=== PATIENT | female | born 1955 | race Hispanic/Latino ===

== ENCOUNTER 2016-07-15 01:37 | Emergency (ER) | payer OTHER ==
[2016-07-15 01:39] VITALS: BMI 34.0
[2016-07-15 02:07] VITALS: TEMP 97.9
--- NOTE | 2016-07-15 02:16 | ED PDOC ---
Arrival/HPI - General Chief Complaint: Dizziness/Lightheaded Time Seen by Provider: 07/15/16 01:42 Historian: Patient - History of Present Illness Narrative History of Present Illness (Text): 07/15/16 02:12 Gianna Parikh is a 61 year old female who presents to the emergency department complaining of dizziness and nausea. States that she woke up from sleep in the middle of the night with room-spinning sensation. Patient measured her blood pressure at home which was elevated at 200s/100s. Took Metoprolol which her mother had and Meclizine at home prior to arrival. Denies any fever, chills, headache, chest pain, shortness of breath, abdominal pain, vomiting, diarrhea, urinary symptoms, or any other complaints at this time. Time/Duration: 1-3 hours Symptom Onset: Sudden Symptom Course: Improving Severity Level: Mild Context: Home Past Medical History - Provider Review Nursing Documentation Reviewed: Yes - Infectious Disease Hx of Infectious Diseases: None - Tetanus Immunization Tetanus Immunization: Unknown - Cardiac Hx Cardiac Disorders: No - Pulmonary Hx Chronic Obstructive Pulmonary Disease (COPD): Yes - Neurological Hx Neurological Disorder: No - HEENT Hx HEENT Disorder: No - Renal Hx Renal Disorder: No - Endocrine/Metabolic Hx Endocrine Disorders: No - Hematological/Oncological Hx Blood Disorders: No - Integumentary Hx Dermatological Disorder: No - Musculoskeletal/Rheumatological Hx Falls: No - Gastrointestinal Hx Gastrointestinal Disorders: No - Genitourinary/Gynecological Hx Genitourinary Disorders: No - Psychiatric Hx Anxiety: Yes Hx Panic Disorder: Yes Hx Substance Use: No - Surgical History Hx Cholecystectomy: Yes Other/Comment: gallbladder. - Anesthesia Hx Anesthesia: No Hx Anesthesia Reactions: No Hx Malignant Hyperthermia: No - Suicidal Assessment Feels Threatened In Home Enviroment: No Family/Social History - Physician Review Nursing Documentation Reviewed: Yes Family/Social History: No Known Family HX Smoking Status: Former Smoker Hx Alcohol Use: No Hx Substance Use: No Hx Substance Use Treatment: No Allergies/Home Meds Allergies/Adverse Reactions: Allergies No Known Allergies Allergy (Verified 05/29/12 18:35) Home Medications: Home Meds Medication Instructions Recorded Confirmed Alprazolam [Xanax] 0.25 mg PO PRN PRN 05/29/12 03/13/13 Escitalopram Oxalate [Lexapro] 10 mg PO DAILY 05/29/12 03/13/13 Albuterol Sulfate [Proair Hfa] 0.09 mg IH DAILY PRN 03/13/13 03/13/13 Fluticasone/Salmeterol 250/50 1 dsk IH DAILY PRN 03/13/13 03/13/13 [Advair Diskus] Zolpidem Tartrate [Ambien] 5 mg PO HS 03/13/13 03/13/13 Aspirin [Aspirin] 81 mg PO DAILY 03/14/13 03/14/13 Metoprolol Tartrate [Lopressor] 25 mg PO DAILY 03/14/13 03/14/13 Review of Systems - Physician Review All systems were reviewed & negative as marked: Yes - Review of Systems Constitutional: Normal. absent: Fatigue, Fevers Respiratory: Normal. absent: SOB, Cough, Sputum Cardiovascular: Normal. absent: Chest Pain, Palpitations Gastrointestinal: Nausea. absent: Abdominal Pain, Diarrhea, Vomiting Genitourinary Female: Normal Neurological: Dizziness. absent: Focal Weakness Psychiatric: Normal Physical Exam Vital Signs Reviewed: Yes Vital Signs Temp Pulse Resp BP Pulse Ox 07/15/16 04:32 62 20 145/96 H 92 L 07/15/16 02:07 97.9 F 64 20 161/96 H 94 L 07/15/16 01:44 98.1 F 81 19 184/106 H 97 Temperature: Afebrile Blood Pressure: Hypertensive Pulse: Regular Respiratory Rate: Normal Appearance: Positive for: Well-Appearing, Non-Toxic, Comfortable Pain Distress: None Mental Status: Positive for: Alert and Oriented X 3 - Systems Exam Head: Present: Atraumatic, Normocephalic Pupils: Present: PERRL Conjunctiva: Present: Normal Respiratory/Chest: Present: Clear to Auscultation, Good Air Exchange. No: Respiratory Distress, Accessory Muscle Use Cardiovascular: Present: Regular Rate and Rhythm, Normal S1, S2. No: Murmurs Abdomen: Present: Normal Bowel Sounds. No: Tenderness, Distention, Peritoneal Signs Upper Extremity: Present: Normal Inspection. No: Cyanosis, Edema Lower Extremity: Present: Normal Inspection. No: Edema Neurological: Present: GCS=15, CN II-XII Intact, Speech Normal, Motor Func Grossly Intact, Normal Sensory Function Skin: Present: Warm, Dry, Normal Color. No: Rashes Psychiatric: Present: Alert, Oriented x 3, Normal Insight, Normal Concentration Medical Decision Making ED Course and Treatment: 07/15/16 02:17 Impression: A 61 year old female who presents to the emergency department complaining of dizziness and nausea since waking up in the middle of the night. Plan: -- CT Head -- EKG -- Labs, troponin -- Urinalysis -- Reassess and disposition Progress Notes: 07/15/16 03:40 EKG reviewed by me: NSR @ 62 bpm with premature atrial complexes. 07/15/16 04:00 FINDINGS: Brain: No intracranial hemorrhage. Periventricular hypoattenuation favored to be related to chronic small vessel ischemic changes. There may be some cerebellar tonsillar ectopia, noting that there is no evidence to suggest hydrocephalus. Changes in the region of the left basal ganglia series 2 image 26 favored stable compared to series 2 image 25 of the study of November 2015. Ventricles: Unremarkable. No ventriculomegaly. Bones/joints: Unremarkable. No acute fracture. Soft tissues: Unremarkable. Vasculature: Sinuses: Patchy ethmoid sinus disease. Mild mucoperiosteal disease in the bilateral maxillary sinus. Mastoid air cells: Unremarkable as visualized. No mastoid effusion. IMPRESSION: No intracranial hemorrhage. No abnormality suspicious for acute stroke by noncontrast head CT. If there is clinical suspicion for stroke, please note that other modalities are considered to be more sensitive than noncontrast head CT. Please refer to the final report, as additional comparisons or other additional information may be available at that time. Re-evaluation Time: 06:07 Reassessment Condition: Re-examined, Improved - Lab Interpretations Lab Results: 07/15/16 02:10 07/15/16 02:10 Lab Results 07/15/16 02:20: Urine Color Yellow, Urine Appearance Sl cloudy, Urine pH 6.0, Ur Specific [place] 1.010, Urine Protein Negative, Urine Glucose (UA) Negative, Urine Ketones Negative, Urine Blood Negative, Urine Nitrate Negative, Urine Bilirubin Negative, Urine Urobilinogen 0.2, Ur Leukocyte Esterase Moderate H, Urine RBC 0 - 2, Urine WBC 5 - 10, Ur Epithelial Cells 3 - 4, Urine Bacteria Few 07/15/16 02:10: WBC 7.1, RBC 4.36, Hgb 13.0, Hct 38.3, MCV 87.8, MCH 29.8, MCHC 33.9, RDW 13.2, Plt Count 188, MPV 9.8, Gran % 45.5 L, Lymph % (Auto) 37.7 H, [place] % (Auto) 8.0 H, Eos % (Auto) 8.4 H, Baso % (Auto) 0.4, Gran # 3.24, Lymph # 2.7, [place] # 0.6, Eos # 0.6, Baso # 0.03 07/15/16 02:10: Sodium 140, Potassium 3.9, Chloride 105, Carbon Dioxide 27, Anion Gap 12, BUN 14, Creatinine 0.6, Est GFR ( Amer) > 60, Est GFR (Non- Af Amer) > 60, Random Glucose 102, Calcium 9.2, Total Bilirubin 0.3, AST 23, ALT 29, Alkaline Phosphatase 90, Troponin I < 0.01, Total Protein 7.7, Albumin 4.2, Globulin 3.6, Albumin/Globulin Ratio 1.2 I have reviewed the lab results: Yes - RAD Interpretation Radiology Orders: 07/15/16 01:59 HEAD W/O CONTRAST [CT] Stat Master Lay Out Specialist: Radiologist - EKG Interpretation Interpreted by ED Physician: Yes Type: 12 lead EKG - Medication Orders Current Medication Orders: Sodium Chloride (Sodium Chloride 0.9%) 1,000 mls @ 80 mls/hr IV .[id number] Last Admin: 07/15/16 04:26 Dose: 80 mls/hr Discontinued Medications Meclizine HCl (Antivert) 12.5 mg PO STAT STA Stop: 07/15/16 02:54 Last Admin: 07/15/16 02:59 Dose: 12.5 mg Metoclopramide HCl (Reglan) 10 mg IVP ONCE ONE Stop: 07/15/16 04:17 Last Admin: 07/15/16 04:27 Dose: 10 mg Ondansetron HCl (Zofran Inj) 4 mg IVP STAT STA Stop: 07/15/16 02:54 Last Admin: 07/15/16 02:59 Dose: 4 mg Ondansetron HCl (Zofran Inj) 4 mg IVP STAT STA Stop: 07/15/16 03:44 Last Admin: 07/15/16 03:45 Dose: 4 mg - Scribe Statement The provider has reviewed the documentation as recorded by the Zaira Costello Provider Attestation: All medical record entries made by the Alexxibe were at my direction and personally dictated by me. I have reviewed the chart and agree that the record accurately reflects my personal performance of the history, physical exam, medical decision making, and the department course for this patient. I have also personally directed, reviewed, and agree with the discharge instructions and disposition. Disposition/Present on Arrival - Present on Arrival Any Indicators Present on Arrival: No History of DVT/PE: No History of Uncontrolled Diabetes: No Urinary Catheter: No History of Decub. Ulcer: No History Surgical Site Infection Following: None - Disposition Have Diagnosis and Disposition been Completed?: Yes Diagnosis: Vertigo, Gastroenteritis Disposition: HOME/ ROUTINE Disposition Time: 06:08 Condition: FAIR Discharge Instructions (ExitCare): Dizziness (ED), Gastroenteritis (ED) Prescriptions: Meclizine [Antivert] 12.5 mg PO TID #21 tab Ondansetron [Zofran Odt] 8 mg PO TID PRN #10 odt PRN Reason: Nausea/Vomiting Referrals: Charlie Cohen MD [Primary Care Provider] - Follow up with primary
[2016-07-15 02:18] LABS: ADD MANUAL DIFF? NO
[2016-07-15 02:24] LABS: BASO # 0.03 K/mm3 (0.0-2.0); BASO % 0.4 % (0.0-3.0); EOS # 0.6 (0.0-0.7); EOS % 8.4 % (1.5-5.0); GRAN # 3.24 (1.4-6.5); GRAN % 45.5 % (50.0-68.0); HEMATOCRIT 38.3 % (36.0-48.0); LYMPH # 2.7 (1.2-3.4); LYMPH % 37.7 % (22.0-35.0); MEAN CELL VOLUME 87.8 fL (80.0-105.0); MEAN CORPUSCULAR HEMOGLOBIN 29.8 pg (25.0-35.0); MEAN CORPUSCULAR HGB CONC 33.9 g/dl (31.0-37.0); MEAN PLATELET VOLUME 9.8 fl (7.0-11.0); MONO # 0.6 (0.1-0.6); PLATELET COUNT 188 10^3/uL (120.0-450.0); RED CELL DISTRIBUTION WIDTH 13.2 % (11.5-14.5); WHITE BLOOD COUNT 7.1 10^3/ul (4.5-11.0)
[2016-07-15 02:31] LABS: ALB/GLOB RATIO 1.2 (1.1-1.8); ALKALINE PHOSPHATASE 90 U/L (38-133); ALT/SGPT 29 U/L (7-56); AST/SGOT 23 U/L (15-39); BILIRUBIN,TOTAL 0.3 mg/dL (0.2-1.3); BLOOD UREA NITROGEN 14 mg/dL (7-21); CALCIUM 9.2 mg/dL (8.4-10.5); CARBON DIOXIDE 27 mmol/L (21-33); CHLORIDE 105 mmol/L (98-107); GFR AFRICAN-AMERICAN > 60; GLUCOSE,RANDOM 102 mg/dL (70-110); POTASSIUM 3.9 mmol/L (3.6-5.0); SODIUM 140 mmol/L (132-148); TOTAL PROTEIN 7.7 g/dL (5.8-8.3)
[2016-07-15 03:00] LABS: URINE BILIRUBIN NEGATIVE (NEGATIVE); URINE BLOOD NEGATIVE (NEGATIVE); URINE GLUCOSE (UA) NEGATIVE (NEGATIVE); URINE KETONE NEGATIVE (NEGATIVE); URINE LEUKOCYTE ESTERASE MODERATE Leu/uL (NEGATIVE); URINE PROTEIN NEGATIVE mg/dL (<30 mg/dL); URINE UROBILINOGEN 0.2 E.U./dL (<1 E.U./dL)
[2016-07-15 03:03] LABS: URINE APPEARANCE SL CLOUDY (CLEAR); URINE COLOR YELLOW (YELLOW)
[2016-07-15 03:03] LABS: TROPONIN I < 0.01 ng/mL
[2016-07-15 03:08] LABS: URINE RBC 0 - 2 /hpf (0-2)
[2016-07-15 03:09] LABS: URINE BACTERIA FEW (NEG)
[2016-07-15] MEDS ORDERED: Sodium Chloride 0.9% 1,000 ML IV SCH (04:15)
[2016-07-15 06:10] VITALS: BP 136/86; PULSE 68; RESP 18; O2SAT 95
--- NOTE | 2016-07-15 08:33 | CT ---
PROCEDURE: CT HEAD WITHOUT CONTRAST. HISTORY: dizzy COMPARISON: 11/13/2015 TECHNIQUE: Axial computed tomography images were obtained through the head/brain without intravenous contrast. Radiation dose: Total exam DLP = 779 mGy-cm. This CT exam was performed using one or more of the following dose reduction techniques: Automated exposure control, adjustment of the mA and/or kV according to patient size, and/or use of iterative reconstruction technique. FINDINGS: HEMORRHAGE: No intracranial hemorrhage. BRAIN: No mass effect or edema. No atrophy or chronic microvascular ischemic changes. VENTRICLES: Unremarkable. No hydrocephalus. CALVARIUM: Unremarkable. PARANASAL SINUSES: Unremarkable as visualized. No significant inflammatory changes. MASTOID AIR CELLS: Unremarkable as visualized. No inflammatory changes. OTHER FINDINGS: The report concurs with the preliminary [facility] report IMPRESSION: No acute finding
--- NOTE | 2016-07-15 15:21 | CARD ---
APPROVED REPORT EKG Measurement Heart [id number] [place] [id number] <Conclusion> Sinus rhythm with 1 APC
== END 2016-07-15 06:11 | disposition home or self-care (01) ==
LOC: ED 01:37
DX: K52.9 Noninfective gastroenteritis and colitis, unspecified (principal); R42 Dizziness and giddiness
CPT/HCPCS: 70450; 80053; 81001; 84484; 85025; 87086; 93005; 96374; 96375; 96376; 99285; J2405; J2765; J7040

== ENCOUNTER 2016-11-24 13:01 | Emergency (ER) | payer OTHER ==
[2016-11-24] MEDS ORDERED: Albuterol-Ipratrop 3 mg / 0.5 (3 ml) UD IH STA (13:51)
[2016-11-24] MEDS ORDERED: cefTRIAXone 1 gm 1 GM/100 ML BAG IVPB STA (13:51)
[2016-11-24] MEDS ORDERED: Azithromycin 500MG/NS 250ml 500 MG/250 ML BAG IVPB STA (13:52)
[2016-11-24 14:02] VITALS: TEMP 98.4; BMI 35.2
--- NOTE | 2016-11-24 14:14 | ED PDOC ---
Arrival/HPI <Chan Rojooper - Last Filed: 11/24/16 16:37> - History of Present Illness Time/Duration: < month Symptom Course: Unchanged Quality: Aching Severity Level: Moderate Activities at Onset: Rest Context: Home <Mickey Montez - Last Filed: 11/24/16 17:51> - General Chief Complaint: Cough, Cold, Congestion Time Seen by Provider: 11/24/16 13:03 - History of Present Illness Narrative History of Present Illness (Text): 11/24/16 14:09 61yo F PMH bronchitis and diverticulitis who presents with cough x3 weeks, a/w sputum and rib discomfort. pt states that she has not been able to pick remover her albuterol or steroids from her MD due to scheduling issues. pt denies fevers/ chills, chest pain, shortness of breath, headaches, n/v/d, urinary/bowel changes , hematochezia. PMD: Dr. Cohen. Pt was a 40pk yr smoker, but quit 10 yrs ago. ( Mickey Montez) Past Medical History - Provider Review Nursing Documentation Reviewed: Yes - Infectious Disease Hx of Infectious Diseases: None - Tetanus Immunization Tetanus Immunization: Unknown - Cardiac Hx Cardiac Disorders: No - Pulmonary Hx Bronchitis: Yes Hx Chronic Obstructive Pulmonary Disease (COPD): Yes - Neurological Hx Neurological Disorder: No - HEENT Hx HEENT Disorder: No - Renal Hx Renal Disorder: No - Endocrine/Metabolic Hx Endocrine Disorders: No - Hematological/Oncological Hx Blood Disorders: No - Integumentary Hx Dermatological Disorder: No - Musculoskeletal/Rheumatological Hx Musculoskeletal Disorders: No Hx Falls: No - Gastrointestinal Hx Gastrointestinal Disorders: No Hx Diverticulitis: Yes - Genitourinary/Gynecological Hx Genitourinary Disorders: No - Psychiatric Hx Anxiety: Yes Hx Panic Disorder: Yes Hx Substance Use: No - Past Surgical History Past Surgical History: Non-Contributing - Surgical History Hx Cholecystectomy: Yes Hx Hysterectomy: Yes - Anesthesia Hx Anesthesia: No Hx Anesthesia Reactions: No Hx Malignant Hyperthermia: No - Suicidal Assessment Feels Threatened In Home Enviroment: No <Mickey Montez - Last Filed: 11/24/16 17:51> Family/Social History - Physician Review Nursing Documentation Reviewed: Yes Family/Social History: No Known Family HX Smoking Status: Former Smoker Hx Alcohol Use: No Hx Substance Use: No Hx Substance Use Treatment: No <Mickey Montez - Last Filed: 11/24/16 17:51> Allergies/Home Meds <Willian Rojo - Last Filed: 11/24/16 16:37> <Mickey Montez - Last Filed: 11/24/16 17:51> Allergies/Adverse Reactions: Allergies No Known Allergies Allergy (Verified 05/29/12 18:35) Home Medications: Home Meds Medication Instructions Recorded Confirmed Alprazolam [Xanax] 0.25 mg PO PRN PRN 05/29/12 03/13/13 Escitalopram Oxalate [Lexapro] 10 mg PO DAILY 05/29/12 03/13/13 Albuterol Sulfate [Proair Hfa] 0.09 mg IH DAILY PRN 03/13/13 03/13/13 Fluticasone/Salmeterol 250/50 1 dsk IH DAILY PRN 03/13/13 03/13/13 [Advair Diskus] Zolpidem Tartrate [Ambien] 5 mg PO HS 03/13/13 03/13/13 Aspirin [Aspirin] 81 mg PO DAILY 03/14/13 03/14/13 Metoprolol Tartrate [Lopressor] 25 mg PO DAILY 03/14/13 03/14/13 Review of Systems - Physician Review All systems were reviewed & negative as marked: Yes - Review of Systems ENT: Rhinorrhea, Sinus Congestion Respiratory: Cough, Sputum Cardiovascular: absent: Chest Pain Gastrointestinal: absent: Abdominal Pain, Stool Changes, Constipation, Diarrhea , Nausea, Vomiting Genitourinary Female: absent: Dysuria Musculoskeletal: absent: Myalgias <Mickey Montez - Last Filed: 11/24/16 17:51> Physical Exam Vital Signs Reviewed: Yes Appearance: Positive for: Well-Appearing Pain Distress: None Mental Status: Positive for: Alert and Oriented X 3 - Systems Exam Head: Present: Atraumatic, Normocephalic Pupils: Present: PERRL Extroacular Muscles: Present: EOMI Conjunctiva: Present: Normal Mouth: Present: Moist Mucous Membranes Neck: Present: Normal Range of Motion Respiratory/Chest: Present: Good Air Exchange, Wheezes, Rhonchi, Tender to Palpation (L anterior ribs 7-9), Other. No: Respiratory Distress, Accessory Muscle Use Cardiovascular: Present: Regular Rate and Rhythm, Normal S1, S2. No: Murmurs Abdomen: Present: Normal Bowel Sounds. No: Tenderness, Distention Back: Present: Normal Inspection. No: CVA Tenderness Upper Extremity: Present: Normal Inspection. No: Cyanosis, Edema Lower Extremity: Present: Normal Inspection. No: Edema Neurological: Present: CN II-XII Intact Skin: Present: Warm, Dry Psychiatric: Present: Alert, Oriented x 3 <Mickey Montez - Last Filed: 11/24/16 17:51> Vital Signs Temp Pulse Resp BP Pulse Ox 11/24/16 13:35 98.4 F 94 H 20 117/68 97 Medical Decision Making <Willian Rojo - Last Filed: 11/24/16 16:37> Reassessment Condition: Re-examined, Improving,but remains with symptoms ( coughing and rhonchi) - Lab Interpretations I have reviewed the lab results: Yes - RAD Interpretation External Grinder: Radiologist - EKG Interpretation Interpreted by ED Physician: Yes Type: 12 lead EKG <Mickey Montez - Last Filed: 11/24/16 17:51> ED Course and Treatment: 11/24/16 14:47 Seen and examined with the resident. Our history and physical exam reveals a woman with approximately 3 week history of cough congestion and URI. She was seen by her PMD and treated with Keflex and steroids, but is no better. She developed some left rib pain secondary to coughing. She is wheezing in mild distress. There are rhonchi present. She has a nonproductive cough. 11/24/16 14:52 EKG shows normal sinus rhythm rate approximately [address] or T-wave changes 11/24/16 16:37 Patient is feeling better, though she still has wheezing and rhonchi. I discussed in detail with the patient that I felt she needed to be admitted to the hospital for intravenous steroids and continued high flow nebulizer treatments. Patient adamantly refuses as she is the primary caregiver for her mother who has at home alone. We will give the patient prescription for cough medication and antibiotics and steroids and she will follow-up in the emergency department as needed. She must follow-up with PMD. (Willian Rojo) 11/24/16 14:19 Impression: 61yo F presenting with symptoms of bronchitis x3 weeks Plan: - reassessment and dispo - EKG - Labs - CXR - duonebs - rocephin and zithromax Progress: 11/24/16 14:22 ekg: NSR @ 81bpm. Notched p waves noted. No ST segment or interval changes, as read by me 11/24/16 14:46 CXR was unremarkable 11/24/16 15:32 Reassessment: pt feeling better, and cough has improved (Mickey Montez) - Lab Interpretations Lab Results: 11/24/16 14:15 11/24/16 14:15 Lab Results 11/24/16 14:15: Sodium 142, Potassium 3.9, Chloride 102, Carbon Dioxide 30, Anion Gap 14, BUN 9, Creatinine 0.7, Est GFR ( Amer) > 60, Est GFR (Non- Af Amer) > 60, Random Glucose 99, Calcium 9.5, Total Bilirubin 0.6, AST 29, ALT 45, Alkaline Phosphatase 81, Lactate Dehydrogenase 458, Total Creatine Kinase 185, Troponin I < 0.01, Total Protein 7.5, Albumin 4.3, Globulin 3.2, Albumin/ Globulin Ratio 1.3 11/24/16 14:15: WBC 8.2, RBC 4.64, Hgb 13.8, Hct 40.7, MCV 87.7, MCH 29.7, MCHC 33.9, RDW 13.0, Plt Count 197, MPV 10.1, Gran % 55.9, Lymph % (Auto) 29.1, [place] % (Auto) 8.5 H, Eos % (Auto) 6.1 H, Baso % (Auto) 0.4, Gran # 4.59, Lymph # 2.4 , [place] # 0.7 H, Eos # 0.5, Baso # 0.03 - RAD Interpretation Radiology Orders: 11/24/16 13:50 CHEST PORTABLE [RAD] Stat - Medication Orders Current Medication Orders: Discontinued Medications Albuterol Sulfate (Albuterol 0.083% Inhal Kayy (2.5 Mg/3 Ml) Ud) 2.5 mg INH STAT STA Stop: 11/24/16 16:32 Last Admin: 11/24/16 16:54 Dose: 2.5 mg Albuterol/Ipratropium (Duoneb 3 Mg/0.5 Mg (3 Ml) Ud) 3 ml IH ONCE STA Stop: 11/24/16 13:52 Last Admin: 11/24/16 14:09 Dose: 3 ml Ceftriaxone Sodium (Rocephin 1 Gram Ivpb) 1 gm in 100 mls @ 200 mls/hr IVPB STAT STA PRN Reason: Protocol Stop: 11/24/16 14:20 Last Admin: 11/24/16 14:09 Dose: 200 mls/hr eMAR Start Stop Document 11/24/16 14:09 ME (Rec: 11/24/16 14:09 [id number] Intravenous Solution Start Date 11/24/16 Start Time 14:09 End Date 11/24/16 End time 14:39 Total Infusion Time 30 Azithromycin (Zithromax 500mg In Ns) 500 mg in 250 mls @ 167 mls/hr IVPB STAT STA PRN Reason: Protocol Stop: 11/24/16 15:21 Last Admin: 11/24/16 15:32 Dose: 167 mls/hr eMAR Start Stop Document 11/24/16 15:32 ME (Rec: 11/24/16 15:32 [id number] Intravenous Solution Start Date 11/24/16 Start Time 15:32 End Date 11/24/16 End time 17:02 Total Infusion Time 90 Methylprednisolone (Solu-Medrol) 125 mg IVP STAT STA Stop: 11/24/16 13:51 Last Admin: 11/24/16 14:09 Dose: 125 mg IVP Administration Document 11/24/16 14:09 ME (Rec: 11/24/16 14:09 [id number]) Charges for Administration # of IVP Administrations 1 Disposition/Present on Arrival - Present on Arrival Any Indicators Present on Arrival: No History of DVT/PE: No History of Uncontrolled Diabetes: No Urinary Catheter: No History of Decub. Ulcer: No - Disposition Have Diagnosis and Disposition been Completed?: Yes Disposition Time: 16:39 Patient Plan: Discharge <Willian Rojo - Last Filed: 11/24/16 16:37> - Present on Arrival History of DVT/PE: No History of Uncontrolled Diabetes: No Urinary Catheter: No History of Decub. Ulcer: No History Surgical Site Infection Following: None <Mickey Montez - Last Filed: 11/24/16 17:51> - Disposition Diagnosis: Asthmatic bronchitis, Dyspnea Disposition: HOME/ ROUTINE Patient Problems: Current Active Problems Problem Status Onset Asthmatic bronchitis Acute Dyspnea Acute Condition: IMPROVED Discharge Instructions (ExitCare): Acute Bronchitis (ED), COPD (Chronic Obstructive Pulmonary Disease) (ED), Bronchospasm (ED), Wheezing (ED) Additional Instructions: Symptomatic treatment. Follow-up with PMD. Follow-up in the ER as needed. Prescriptions: predniSONE [predniSONE Tab] 60 mg PO DAILY #15 tab Benzonatate [Tessalon Perles] 100 mg PO Q8 #30 sgl Albuterol HFA [Ventolin HFA 90 mcg/actuation (8 g)] 2 puff IH [id number] #1 puff Azithromycin [Zithromax] 250 mg PO DAILY #6 tab Referrals: Charlie Cohen MD [Primary Care Provider] - Follow up with primary Forms: [employer] (Guinean)
--- NOTE | 2016-11-24 14:26 | RAD ---
HISTORY: cough COMPARISON: 11/12/2015 FINDINGS: LUNGS: No active pulmonary disease. PLEURA: No significant pleural effusion identified, no pneumothorax apparent. CARDIOVASCULAR: Normal. OSSEOUS STRUCTURES: No significant abnormalities. VISUALIZED UPPER ABDOMEN: Normal. OTHER FINDINGS: None. IMPRESSION: No active disease.
[2016-11-24 15:36] LABS: ALB/GLOB RATIO 1.3 (1.1-1.8); ALKALINE PHOSPHATASE 81 U/L (38-126); ALT/SGPT 45 U/L (7-56); AST/SGOT 29 U/L (14-36); BILIRUBIN,TOTAL 0.6 mg/dL (0.2-1.3); BLOOD UREA NITROGEN 9 mg/dL (7-21); CALCIUM 9.5 mg/dL (8.4-10.5); CARBON DIOXIDE 30 mmol/L (21-33); CHLORIDE 102 mmol/L (98-107); GFR AFRICAN-AMERICAN > 60; GLUCOSE,RANDOM 99 mg/dL (70-110); POTASSIUM 3.9 mmol/L (3.6-5.0); SODIUM 142 mmol/L (132-148); TOTAL PROTEIN 7.5 g/dL (5.8-8.3)
[2016-11-24 15:40] LABS: BASO # 0.03 K/mm3 (0.0-2.0); BASO % 0.4 % (0.0-3.0); EOS # 0.5 (0.0-0.7); EOS % 6.1 % (1.5-5.0); GRAN # 4.59 (1.4-6.5); GRAN % 55.9 % (50.0-68.0); HEMATOCRIT 40.7 % (36.0-48.0); LYMPH # 2.4 (1.2-3.4); LYMPH % 29.1 % (22.0-35.0); MEAN CELL VOLUME 87.7 fl (80.0-105.0); MEAN CORPUSCULAR HEMOGLOBIN 29.7 pg (25.0-35.0); MEAN CORPUSCULAR HGB CONC 33.9 g/dl (31.0-37.0); MEAN PLATELET VOLUME 10.1 fl (7.0-11.0); MONO # 0.7 (0.1-0.6); MONO % 8.5 % (1.0-6.0); WHITE BLOOD COUNT 8.2 10^3/ul (4.5-11.0)
[2016-11-24 15:51] LABS: TROPONIN I < 0.01 ng/mL
[2016-11-24] MEDS ORDERED: Albuterol 0.083% Inhal Sol (2.5 mg/3 mL) UD INH STA (16:31)
[2016-11-24 17:58] VITALS: BP 116/65; PULSE 86; RESP 18; O2SAT 98
--- NOTE | 2016-11-24 22:04 | CARD ---
APPROVED REPORT EKG Measurement Heart [id number] [place] [id number] [id number] <Conclusion> Normal sinus rhythm Normal ECG
== END 2016-11-24 17:59 | disposition home or self-care (01) ==
LOC: ED 13:01
DX: J45.909 Unspecified asthma, uncomplicated (principal); R06.00 Dyspnea, unspecified; Z87.891 Personal history of nicotine dependence
CPT/HCPCS: 71010; 80053; 82550; 83615; 84484; 85025; 87040; 93005; 96365; 96367; 96375; 99283; J0456; J0696; J2930

== ENCOUNTER 2017-09-14 13:25 | Observation (INO) | payer OTHER ==
[2017-09-14 13:26] VITALS: BMI 34.0
[2017-09-14] MEDS ORDERED: Ciprofloxacin 400mg/200ml D5W 400 MG/200 ML BAG IVPB STA (14:33)
[2017-09-14] MEDS ORDERED: metroNIDAZOLE IV 500 mg/100 ml 500 MG/100 ML BAG IVPB STA (14:33)
--- NOTE | 2017-09-14 14:46 | ED PDOC ---
Arrival/HPI - General Historian: Patient - History of Present Illness Time/Duration: < week Symptom Onset: Sudden Symptom Course: Unchanged, Intermittent, Worsening Quality: Aching, Cramping, Gas Like Severity Level: 7 Activities at Onset: Rest, Eating <Bertrand Sykes - Last Filed: 09/14/17 17:48> <Willian Rojo - Last Filed: 09/14/17 18:18> - General Chief Complaint: Abdominal Pain Time Seen by Provider: 09/14/17 13:45 - History of Present Illness Narrative History of Present Illness (Text): 09/14/17 14:36 62 year-old female with PMH of diverticulosis (diagnosed 4 years ago with colonoscopy), cholelithiasis (s/p cholecystectomy), vertigo, and anxiety presents to the ED today complaining of abdominal pain that started 3 days ago. Patient describes the pain as a sharp, bloating type sensation. It is most severe in the RLQ and LLQ. Since onset, the pain has gotten worse and patient states she is no longer able to eat or drink anything without severe pain. Patient took an OTC antacid but did not feel any relief of her symptoms. Patient admits to nausea, chills, and weakness. Patient denied any bloody stools , diarrhea, fever, chest pain, or shortness of breath. Patient also reports that she was recently taking Ciprofloxacin 2 weeks ago for an upper-respiratory infection but only took it for two days before stopping it on her own. ( Bertrand Sykes) Past Medical History - Provider Review Nursing Documentation Reviewed: Yes - Travel History Have you recently traveled outside [place] w/in the past 3 mons?: No - Infectious Disease Hx of Infectious Diseases: None - Tetanus Immunization Tetanus Immunization: Unknown - Cardiac Hx Cardiac Disorders: No - Pulmonary Hx Bronchitis: Yes Hx Chronic Obstructive Pulmonary Disease (COPD): Yes - Neurological Hx Neurological Disorder: No - HEENT Hx HEENT Disorder: No - Renal Hx Renal Disorder: No - Endocrine/Metabolic Hx Endocrine Disorders: No - Hematological/Oncological Hx Blood Disorders: No - Integumentary Hx Dermatological Disorder: No - Musculoskeletal/Rheumatological Hx Musculoskeletal Disorders: No Hx Falls: No - Gastrointestinal Hx Gastrointestinal Disorders: No Hx Diverticulitis: Yes - Genitourinary/Gynecological Hx Genitourinary Disorders: No - Psychiatric Hx Anxiety: Yes Hx Panic Disorder: Yes Hx Substance Use: No - Past Surgical History Past Surgical History: Non-Contributing - Surgical History Hx Cholecystectomy: Yes Hx Hysterectomy: Yes Other/Comment: gallbladder. - Anesthesia Hx Anesthesia: No Hx Anesthesia Reactions: No Hx Malignant Hyperthermia: No - Suicidal Assessment Feels Threatened In Home Enviroment: No <SykesBertrand - Last Filed: 09/14/17 17:48> Family/Social History - Physician Review Nursing Documentation Reviewed: Yes Family/Social History: No Known Family HX Smoking Status: Former Smoker Hx Alcohol Use: No Hx Substance Use: No Hx Substance Use Treatment: No <Bertrand Sykes - Last Filed: 09/14/17 17:48> Allergies/Home Meds <Bertrand Sykes - Last Filed: 09/14/17 17:48> <Willian Rojo - Last Filed: 09/14/17 18:18> Allergies/Adverse Reactions: Allergies No Known Allergies Allergy (Verified 05/29/12 18:35) Home Medications: Home Meds Medication Instructions Recorded Confirmed Alprazolam [Xanax] 0.25 mg PO PRN PRN 05/29/12 03/13/13 Escitalopram Oxalate [Lexapro] 10 mg PO DAILY 05/29/12 03/13/13 Albuterol Sulfate [Proair Hfa] 0.09 mg IH DAILY PRN 03/13/13 03/13/13 Fluticasone/Salmeterol 250/50 1 dsk IH DAILY PRN 03/13/13 03/13/13 [Advair Diskus] Zolpidem Tartrate [Ambien] 5 mg PO HS 03/13/13 03/13/13 Aspirin [Aspirin] 81 mg PO DAILY 03/14/13 03/14/13 Metoprolol Tartrate [Lopressor] 25 mg PO DAILY 03/14/13 03/14/13 Review of Systems - Physician Review All systems were reviewed & negative as marked: Yes - Review of Systems Constitutional: Other (chills). absent: Weight Change, Night Sweats Eyes: absent: Vision Changes, Photophobia ENT: absent: Sore Throat, Rhinorrhea Respiratory: absent: SOB, Cough Cardiovascular: absent: Chest Pain, Edema Gastrointestinal: Abdominal Pain, Nausea, Food Intolerance. absent: Diarrhea, Vomiting, Hematochezia, Hematemesis Genitourinary Female: absent: Dysuria, Frequency Musculoskeletal: absent: Arthralgias Skin: absent: Rash, Pruritis Neurological: absent: Headache, Dizziness Endocrine: absent: Diaphoresis Hemo/Lymphatic: absent: Adenopathy Psychiatric: absent: Anxiety, Depression <Bertrand Sykes - Last Filed: 09/14/17 17:48> Physical Exam Vital Signs Reviewed: Yes Temperature: Febrile Blood Pressure: Normal Pulse: Regular Respiratory Rate: Normal Appearance: Positive for: Non-Toxic, Ill-Appearing Pain Distress: Moderate Mental Status: Positive for: Alert and Oriented X 3 - Systems Exam Head: Present: Atraumatic, Normocephalic Pupils: Present: PERRL Extroacular Muscles: Present: EOMI Conjunctiva: Present: Normal Mouth: Present: Moist Mucous Membranes Pharnyx: Present: Normal. No: ERYTHEMA, EXUDATE Nose (External): Present: Atraumatic Neck: Present: Normal Range of Motion. No: JVD Respiratory/Chest: Present: Clear to Auscultation. No: Wheezes, Rales, Rhonchi Cardiovascular: Present: Regular Rate and Rhythm, Normal S1, S2. No: Murmurs, Rub, Gallop Abdomen: Present: Tenderness (greatest in RLQ), Rebound, McBurney's Point Tender. No: Guarding, Mass/Organomegaly Upper Extremity: Present: Normal Inspection. No: Cyanosis, Edema Lower Extremity: Present: Normal Inspection. No: Edema Neurological: Present: Speech Normal Skin: Present: Warm, Dry Psychiatric: Present: Alert, Oriented x 3 <Bertrand Sykes - Last Filed: 09/14/17 17:48> Vital Signs Temp Pulse Resp Pulse Ox 09/14/17 13:26 101 F H 92 H 18 96 Medical Decision Making - Lab Interpretations I have reviewed the lab results: Yes Interpretation: Abnormal lab values (WBC 12.4) - RAD Interpretation Coremaker Experimental: Radiologist <Bertrand Sykes - Last Filed: 09/14/17 17:48> - RAD Interpretation Coremaker Experimental: Radiologist <Willian Rojo - Last Filed: 09/14/17 18:18> ED Course and Treatment: 09/14/17 14:48 -Will check CBC, CMP, lipase, urine -Will start on empiric cipro/flagyl -CT abdomen wo contrast pending 09/14/17 16:10 -CT scan consistent with diverticulitis -WBC elevated -Recommend admission to continue IV antibiotics -At this time, patient would prefer to leave as she is not sure she'll be able to find a caregiver for her mother at home 09/14/17 16:20 -Spoke with patient again about why we are recommending she stay in the hospital -She called her daughter who will be able to watch her mother at home 09/14/17 16:27 -Spoke with Dr. Leggett who agrees to admission (Bertrand Sykes) 09/14/17 15:17 Seen and examined with the resident. Our history and physical exam reveals a woman complaining of lower abdominal pain since yesterday. There is a low grade fever in the department. She is complaining of chills. She has some mild right lower quadrant tenderness. CT scan has been ordered to rule out appendicitis and diverticulitis. (Willian Rojo) - Lab Interpretations Lab Results: 09/14/17 15:15 09/14/17 15:15 Lab Results 09/14/17 15:15: pO2 144 H, VBG pH 7.39, VBG pCO2 43.0, VBG HCO3 26.0, VBG Total CO2 27.3, VBG O2 Sat (Calc) 99.9 H, VBG Base Excess 0.8, VBG Potassium 5.9 H, Sodium 138.0, Chloride 107.0, Glucose 92, Lactate 1.4, FiO2 21.0, Venous Blood Potassium 5.9 H 09/14/17 15:15: Sodium 140, Chloride 104, Potassium 4.4, Carbon Dioxide 23, Anion Gap 17, BUN 11, Creatinine 0.5 L, Est GFR ( Amer) > 60, Est GFR ( Non-Af Amer) > 60, Random Glucose 92, Calcium 9.3, Phosphorus 3.1, Magnesium 2.2 , Total Bilirubin 0.8, AST 27, ALT 16, Alkaline Phosphatase 72, Lactate Dehydrogenase 591, Total Creatine Kinase 78, Troponin I < 0.01, Total Protein 7.9, Albumin 4.3, Globulin 3.6, Albumin/Globulin Ratio 1.2, Lipase 78 09/14/17 15:15: PT 11.8, INR 1.03, APTT 32.0 09/14/17 15:15: WBC 12.4 H D, RBC 4.76, Hgb 14.2, Hct 41.4, MCV 87.0, MCH 29.8, MCHC 34.3, RDW 12.9, Plt Count 188, MPV 9.9, Gran % 81.0 H, Lymph % (Auto) 10.3 L, Ellis % (Auto) 6.6 H, Eos % (Auto) 1.9, Baso % (Auto) 0.2, Gran # 10.01 H, Lymph # (Auto) 1.3, Ellis # (Auto) 0.8 H, Eos # (Auto) 0.2, Baso # (Auto) 0.02 - RAD Interpretation Radiology Orders: 09/14/17 14:34 ABDOMEN & PELVIS [ABD & PELVIS W/O PO OR IV CONT] [CT] Stat CT scan of the abdomen and pelvis is read by the radiologist shows diverticulitis with no abscess or free air. (Willian Rojo) - Medication Orders Current Medication Orders: Discontinued Medications Acetaminophen (Tylenol 325mg Tab) 650 mg PO STAT STA Stop: 09/14/17 15:43 Last Admin: 09/14/17 15:49 Dose: 650 mg MAR Pain/Vitals Document 09/14/17 15:49 EQ (Rec: 09/14/17 15:49 EQ [id number]) Pain Reassessment Is This A Pain ReAssessment? No Sleep Is patient sleeping during reassessment? No Presence of Pain Presence of Pain Yes Ciprofloxacin (Cipro 400mg/200ml Dsw) 400 mg in 200 mls @ 133.3 mls/hr IVPB STAT STA PRN Reason: Protocol Stop: 09/14/17 16:03 Last Admin: 09/14/17 17:11 Dose: 133.3 mls/hr eMAR Start Stop Document 09/14/17 17:11 EQ (Rec: 09/14/17 17:11 EQ [id number]) Intravenous Solution Start Date 09/14/17 Start Time 17:11 Metronidazole (Flagyl) 500 mg in 100 mls @ 100 mls/hr IVPB STAT STA PRN Reason: Protocol Stop: 09/14/17 15:32 Last Admin: 09/14/17 15:20 Dose: 100 mls/hr eMAR Start Stop Document 09/14/17 15:20 EQ (Rec: 09/14/17 15:48 EQ [id number]) Intravenous Solution Start Date 09/14/17 Start Time 15:20 Sodium Chloride (Sodium Chloride 0.9%) 1,000 mls @ 999 mls/hr IV .Q1H1M STA Stop: 09/14/17 15:52 Last Admin: 09/14/17 15:15 Dose: 999 mls/hr eMAR Start Stop Document 09/14/17 15:15 EQ (Rec: 09/14/17 15:48 EQ [id number]) Intravenous Solution Start Date 09/14/17 Start Time 15:48 Disposition/Present on Arrival - Present on Arrival Any Indicators Present on Arrival: No History of DVT/PE: No History of Uncontrolled Diabetes: No Urinary Catheter: No History of Decub. Ulcer: No History Surgical Site Infection Following: None - Disposition Disposition Time: 16:28 Patient Plan: Admission, Observation <Bertrand Sykes - Last Filed: 09/14/17 17:48> - Present on Arrival Any Indicators Present on Arrival: No History of DVT/PE: No History of Uncontrolled Diabetes: No Urinary Catheter: No History of Decub. Ulcer: No - Disposition Have Diagnosis and Disposition been Completed?: Yes Patient Plan: Observation <Willian Rojo - Last Filed: 09/14/17 18:18> - Disposition Diagnosis: Diverticulitis, Abdominal pain Disposition: HOSPITALIZED Patient Problems: Current Active Problems Problem Status Onset Abdominal pain Acute Diverticulitis Acute Condition: GOOD
[2017-09-14] MEDS ORDERED: Sodium Chloride 0.9% 1,000 ML IV STA (14:52)
--- NOTE | 2017-09-14 15:55 | CT ---
Date of service: 09/14/2017 PROCEDURE: CT Abdomen and Pelvis without intravenous contrast HISTORY: abdominal pain, hx of diverticulosis, febrile COMPARISON: None. TECHNIQUE: Without contrast. Contrast dose: Radiation dose: Total exam DLP = 938 mGy-cm. This CT exam was performed using one or more of the following dose reduction techniques: Automated exposure control, adjustment of the mA and/or kV according to patient size, and/or use of iterative reconstruction technique. FINDINGS: LOWER THORAX: Unremarkable. LIVER: Unremarkable. No gross lesion or ductal dilatation. GALLBLADDER AND BILE DUCTS: Gallbladder removed PANCREAS: Unremarkable. No gross lesion or ductal dilatation. SPLEEN: Unremarkable. ADRENALS: Unremarkable. No mass. KIDNEYS AND URETERS: Unremarkable. No hydronephrosis. No solid mass. VASCULATURE: Unremarkable. No aortic aneurysm. BOWEL: There is diverticulitis of the sigmoid colon. There is mural thickening and mesenteric inflammation. There is no evidence of abscess APPENDIX: Unremarkable. Normal appendix. PERITONEUM: Unremarkable. No free fluid. No free air. LYMPH NODES: Unremarkable. No enlarged lymph nodes. BLADDER: Unremarkable. REPRODUCTIVE: Unremarkable. BONES: No acute fracture. OTHER FINDINGS: None. IMPRESSION: There is diverticulitis of the sigmoid colon. There is mural thickening and mesenteric inflammation. There is no evidence of abscess
[2017-09-14 15:56] LABS: BASO # 0.02 K/mm3 (0.0-2.0); BASO % 0.2 % (0.0-3.0); EOS # 0.2 (0.0-0.7); EOS % 1.9 % (1.5-5.0); GRAN # 10.01 (1.4-6.5); HEMOGLOBIN 14.2 g/dL (12.0-16.0); LYMPH # 1.3 (1.2-3.4); LYMPH % 10.3 % (22.0-35.0); MEAN CORPUSCULAR HEMOGLOBIN 29.8 pg (25.0-35.0); MEAN CORPUSCULAR HGB CONC 34.3 g/dl (31.0-37.0); MEAN PLATELET VOLUME 9.9 fl (7.0-11.0); MONO # 0.8 (0.1-0.6); MONO % 6.6 % (1.0-6.0); RBC 4.76 10^6/uL (3.5-6.1); RED CELL DISTRIBUTION WIDTH 12.9 % (11.5-14.5); WHITE BLOOD COUNT 12.4 10^3/ul (4.5-11.0)
[2017-09-14 15:57] LABS: VENOUS BLOOD GAS BASE EXCESS 0.8 mmol/L (0.0-2.0); VENOUS BLOOD GAS PO2 144 mm/Hg (30-55); VENOUS BLOOD PH 7.39 (7.32-7.43)
[2017-09-14 16:07] LABS: INR 1.03; PROTHROMBIN TIME 11.8 SECONDS (9.4-12.5)
[2017-09-14 16:16] LABS: CALCIUM 9.3 mg/dL (8.4-10.5); GFR AFRICAN-AMERICAN > 60; GFR NON-AFRICAN AMERICAN > 60; LIPASE 78 U/L (23-300)
[2017-09-14 16:18] LABS: ALB/GLOB RATIO 1.2 (1.1-1.8); ALBUMIN 4.3 g/dL (3.0-4.8); ALT/SGPT 16 U/L (7-56); AST/SGOT 27 U/L (14-36); BLOOD UREA NITROGEN 11 mg/dL (7-21)
[2017-09-14 16:38] LABS: TROPONIN I < 0.01 ng/mL
[2017-09-14 18:49] LABS: PH,URINE 6.5 (4.7-8.0); URINE BILIRUBIN NEGATIVE (NEGATIVE); URINE BLOOD NEGATIVE (NEGATIVE); URINE GLUCOSE (UA) NEGATIVE (NEGATIVE); URINE LEUKOCYTE ESTERASE NEGATIVE Leu/uL (NEGATIVE); URINE PROTEIN NEGATIVE mg/dL (<30 mg/dL); URINE UROBILINOGEN 0.2 E.U./dL (<1 E.U./dL)
[2017-09-14 18:50] LABS: URINE APPEARANCE CLEAR (CLEAR); URINE COLOR LIGHT YELLOW (YELLOW)
[2017-09-14 21:58] VITALS: RESP 19
[2017-09-15 00:22] VITALS: TEMP 98.7
[2017-09-15] MEDS ORDERED: metroNIDAZOLE IV 500 mg/100 ml 500 MG/100 ML BAG IVPB SCH (06:45)
--- NOTE | 2017-09-15 07:35 | CP.PCM.CON ---
History of Present Illness - History of Present Illness History of Present Illness: Ramoselvia Jacques , PGY-2: GI Consult Note for Dr. Blackwood 62-year-old female with a past medical history of a diverticulosis, COPD, anxiety, depression, cholelithiasis s/p cholecystectomy who is presenting with three days of abdominal pain, inability to pass flatus, nausea, no PO intake, and new onset fevers starting on the day of admission. She also reports some of abdominal distention. She reports no relief with the use of antacids. She denies any bloody bowel movements, diarrhea, chest pain, you lateral weakness or numbness or, family history of colorectal disease. Reports having her last colonoscopy for years ago with Dr. Grigsby. She does report taking ciprofloxacin two weeks ago for an upper respiratory infection. She denies chest pain, dyspnea , productive cough, weakness, headache, hematochezia, melena, or dysuria. Past medical history: As above Surgical history: cholecystectomy 30 years ago. Allergies: NKA Social history: worked for [employer], retired two years ago, 84 pack year history, does not drink alcohol, denies illicit drug use. Primary medical doctor: Dr. mitchell. Review of Systems - Review of Systems All systems: reviewed and no additional remarkable complaints except (as per HPI ) Past Patient History - Infectious Disease Hx of Infectious Diseases: None - Tetanus Immunizations Tetanus Immunization: Unknown - Past Social History Smoking Status: Former Smoker - CARDIAC Hx Cardiac Disorders: Yes Hx Hypertension: Yes - PULMONARY Hx Respiratory Disorders: Yes Hx Bronchitis: Yes Hx Chronic Obstructive Pulmonary Disease (COPD): Yes Hx Pneumonia: Yes - NEUROLOGICAL Hx Neurological Disorder: Yes Hx Dizziness: Yes - HEENT Hx HEENT Problems: No - RENAL Hx Chronic Kidney Disease: No - ENDOCRINE/METABOLIC Hx Endocrine Disorders: No - HEMATOLOGICAL/ONCOLOGICAL Hx Blood Disorders: No - INTEGUMENTARY Hx Dermatological Problems: No - MUSCULOSKELETAL/RHEUMATOLOGICAL Hx Musculoskeletal Disorders: No Hx Falls: No - GASTROINTESTINAL Hx Gastrointestinal Disorders: No Hx Diverticulitis: Yes - GENITOURINARY/GYNECOLOGICAL Hx Genitourinary Disorders: No - PSYCHIATRIC Hx Psychophysiologic Disorder: Yes Hx Anxiety: Yes Hx Panic Symptoms: Yes - SURGICAL HISTORY Hx Surgeries: Yes Hx Cholecystectomy: Yes Hx Hysterectomy: Yes - ANESTHESIA Hx Anesthesia: No Hx Anesthesia Reactions: No Hx Malignant Hyperthermia: No Meds Home Medications: Home Medication List Medication Instructions Recorded Confirmed Type Ciprofloxacin [Cipro] 500 mg PO BID #14 tab 09/15/17 Rx Metronidazole [Flagyl] 500 mg PO Q8H #21 tab 09/15/17 Rx Allergies/Adverse Reactions: Allergies Allergy/AdvReac Type Severity Reaction Status Date / Time No Known Allergies Allergy Verified 05/29/12 18:35 - Medications Medications: Current Medications Metronidazole (Flagyl) 500 mg in 100 mls @ 100 mls/hr IVPB Q8 LEAH PRN Reason: Protocol Last Admin: 09/15/17 07:29 Dose: 100 mls/hr Ceftriaxone Sodium (Rocephin 1 Gram Ivpb) 1 gm in 100 mls @ 100 mls/hr IVPB DAILY LEAH PRN Reason: Protocol Pantoprazole Sodium (Protonix Inj) 40 mg IVP DAILY LEAH Physical Exam - Constitutional Appears: Non-toxic - Head Exam Head Exam: ATRAUMATIC, NORMOCEPHALIC - Eye Exam Eye Exam: EOMI, Normal appearance - ENT Exam ENT Exam: Mucous Membranes Dry - Neck Exam Neck exam: Positive for: Normal Inspection - Respiratory Exam Respiratory Exam: Clear to Auscultation Bilateral, NORMAL BREATHING PATTERN. absent: Accessory Muscle Use - Cardiovascular Exam Cardiovascular Exam: RRR, +S1, +S2 - GI/Abdominal Exam GI & Abdominal Exam: Normal Bowel Sounds, Tenderness (RLQ and suprapubic area). absent: Rebound - Extremities Exam Extremities exam: Positive for: normal inspection. Negative for: calf tenderness - Back Exam Back exam: NORMAL INSPECTION. absent: CVA tenderness (L), CVA tenderness (R) - Neurological Exam Neurological exam: Alert, Oriented x3 - Psychiatric Exam Psychiatric exam: Normal Affect, Normal Mood - Skin Skin Exam: Dry, Intact, Normal Color, Warm Results - Vital Signs Recent Vital Signs: Last Vital Signs Temp 98.7 F 09/15/17 00:21 Pulse 79 09/14/17 18:30 Resp 19 09/14/17 20:00 BP 120/66 09/14/17 18:30 Pulse Ox 97 09/14/17 18:30 - Labs Result Diagrams: 09/15/17 07:30 09/15/17 07:30 Assessment & Plan - Assessment and Plan (Free Text) Assessment: 62 year old female with a past medical history of COPD, diverticulosis, depression/anxiety, who presents with LLQ pain, nausea, obstipation and was found to have a leukocytosis and CT findings of sigmoid diverticulitis, mural thickening and mesenteric inflammation, and no evidence of abscess. In the ED, the patient was started on Ciprofloxacin and Metronidazole. GI was consulted for diverticulitis. Plan: Acute Diverticulitis - Ceftriaxone and Metronidazole - NPO - Recommend maintenance fluids - Recommend re-starting home medications - Date & Time Date: 09/15/17 Time: 07:25
[2017-09-15 07:48] LABS: BASO # 0.02 K/mm3 (0.0-2.0); BASO % 0.2 % (0.0-3.0); EOS # 0.3 (0.0-0.7); EOS % 2.2 % (1.5-5.0); GRAN # 8.15 (1.4-6.5); HEMOGLOBIN 13.2 g/dL (12.0-16.0); LYMPH # 1.9 (1.2-3.4); LYMPH % 17.1 % (22.0-35.0); MEAN CELL VOLUME 86.9 fl (80.0-105.0); MEAN CORPUSCULAR HEMOGLOBIN 29.9 pg (25.0-35.0); MEAN CORPUSCULAR HGB CONC 34.4 g/dl (31.0-37.0); MEAN PLATELET VOLUME 9.3 fl (7.0-11.0); MONO # 0.8 (0.1-0.6); MONO % 7.5 % (1.0-6.0); RBC 4.42 10^6/uL (3.5-6.1); WHITE BLOOD COUNT 11.2 10^3/ul (4.5-11.0)
[2017-09-15 08:01] LABS: ALB/GLOB RATIO 1.2 (1.1-1.8); ALBUMIN 4.2 g/dL (3.0-4.8); ALT/SGPT 27 U/L (7-56); AST/SGOT 19 U/L (14-36); BLOOD UREA NITROGEN 9 mg/dL (7-21); CALCIUM 9.2 mg/dL (8.4-10.5); GFR AFRICAN-AMERICAN > 60; GFR NON-AFRICAN AMERICAN > 60
[2017-09-15 08:34] VITALS: BP 126/75; PULSE 75; O2SAT 94
[2017-09-15] MEDS ORDERED: cefTRIAXone 1 gm 1 GM/100 ML BAG IVPB SCH (10:00)
--- NOTE | 2017-09-15 21:01 | HP ---
Copied To: Kishore Gandara MD Attending MD: Kishore Gandara MD CHIEF COMPLAINT AND HISTORY OF PRESENT ILLNESS: This is a 62-year-old female who has come into the hospital complaining of abdominal pain. She says the pain started getting worse over the last few days. She says that she had no nausea, no vomiting. The patient had a coloscopy about four years ago and had diverticulosis. She has a history of cholecystectomy. She gets anxiety at times. She says the pain was mostly in the left lower quadrant. She was taken [id number] antacids, but did not feel any improvement of her symptoms. She had been on ciprofloxacin for UTI recently, but she stopped her antibiotics after two days. REVIEW OF SYSTEMS: All other review of symptoms are within normal limits except as mentioned. She denies any diarrhea. PAST MEDICAL HISTORY: Hypertension. PAST SURGICAL HISTORY: Cholecystectomy, hysterectomy. SOCIAL HISTORY: The patient is a former smoker. She denies alcohol or substance abuse. MEDICATIONS: She is on Xanax, Lexapro, ProAir, Advair, Ambien, aspirin, Lopressor. FAMILY HISTORY: Noncontributory. PHYSICAL EXAMINATION VITAL SIGNS: The patient has a temperature of 100.1 T- max, blood pressure is 126/75, respirations 19, O2 saturation 94%. GENERAL: The patient lying in bed, uncomfortable, and in no acute distress. HEENT: Atraumatic and normocephalic. Anicteric sclerae. Moist mucosa. [place] conjunctivae. No oral lesions. NECK: No JVD, anterior and posterior adenopathy, thyromegaly, or bruits. CARDIOVASCULAR: S1 and S2 regular. No murmur, rubs, or gallop. LUNGS: Clear to auscultation bilaterally. No wheezes, rales, or rhonchi. ABDOMEN: . Bowel sounds are positive, soft. There is a mild left lower quadrant tenderness. No rebound, no guarding. EXTREMITIES: No cyanosis, clubbing, or edema. NEUROLOGIC: No facial asymmetry. Tongue is midline. No uvula deviation. Power is 5/5 upper extremity and lower extremity. Sensation intact in upper extremity and lower extremity. PSYCHIATRIC: She is awake, alert and oriented x3. No anxiety or depression. She has normal affect. GENITOURINARY: No CVA tenderness. VASCULAR: 2+ pulses in the carotid pulses and pedal pulses. SKIN: No erythema or nodules SPINE: Shows normal curvature. LABORATORY DATA: White count of 12.4, hemoglobin 14.2. INR is 1. Chemistry shows a sodium of 140, potassium is 4.4. Troponin is 0.01. Urine shows glucose is negative, ketones are negative, blood is negative. ASSESSMENT: 1. Sigmoid diverticulitis. 2. Anxiety. 3. Chronic obstructive pulmonary disease. PLAN: The patient is currently comfortable. She is on Flagyl and Rocephin for antibiotics. She is going to be discharged home as she has a mild illness. She is able to tolerate her diet. The patient says the pain is better. She has a 92-year-old mother that she is also taking care of and she is a primary daycare provider. She says she will follow up with Dr. Grigsby who is her doctor. Kishore Gandara MD
== END 2017-09-15 13:25 | disposition home or self-care (01) ==
LOC: ED 13:25 → ERH 16:26 → 3RSO 19:00
PROVIDERS: ADMIT Internal Medicine Nephrology; ATTEND Internal Medicine Nephrology
DX: K57.32 Diverticulitis of large intestine without perforation or abscess without bleeding (principal); D72.829 Elevated white blood cell count, unspecified; F41.0 Panic disorder [episodic paroxysmal anxiety]; I10 Essential (primary) hypertension; J44.9 Chronic obstructive pulmonary disease, unspecified; K59.00 Constipation, unspecified; Z79.82 Long term (current) use of aspirin; Z87.01 Personal history of pneumonia (recurrent); Z87.891 Personal history of nicotine dependence; Z90.49 Acquired absence of other specified parts of digestive tract; Z90.710 Acquired absence of both cervix and uterus; Z87.440 Personal history of urinary (tract) infections
CPT/HCPCS: 36415; 74176; 80053; 81003; 82550; 82803; 83615; 83690; 83735; 84100; 84484; 85025; 85610; 85730; 87040; 99284; C9113; G0378; J0696; J0744; J7030

== ENCOUNTER 2018-04-18 07:38 | Emergency (ER) | payer OTHER ==
[2018-04-18 07:38] VITALS: BMI 34.0
[2018-04-18 07:48] VITALS: RESP 18
[2018-04-18] MEDS ORDERED: Sodium Chloride 0.9% 1,000 ML IV STA (07:58)
--- NOTE | 2018-04-18 08:16 | ED PDOC ---
Arrival/HPI - General Chief Complaint: Dizziness/Lightheaded Time Seen by Provider: 04/18/18 07:39 Historian: Patient - History of Present Illness Narrative History of Present Illness (Text): 04/18/18 08:09 63 y/o F, with PMHx of diverticulosis (diagnosed 4 years ago with colonoscopy), cholelithiasis (s/p cholecystectomy), vertigo, bronchial asthma, and anxiety, presents to the ED for evaluation of productive cough with green sputum since Wednesday. Patient reports dizziness associated with pre-syncopal episode this morning, prompting her to present to the ED for evaluation. Patient informs symptoms were consistent with past episodes of vertigo, which improved after taking Meclizine at home. Patient informs nausea but denies any other associated somatic complaints. Patient denies any fevers, chills, headache, chest pain, shortness of breath, dyspnea on exertion, shortness of breath, abdominal pain, vomiting, diarrhea, back pain, neck pain, or any other complaints. Patient informs recent sick contact with daughter, who has been diagnosed with the flu. PMD: Dr. Cohen Time/Duration: < week Symptom Onset: Gradual Symptom Course: Unchanged Activities at Onset: Light Context: Home Past Medical History - Provider Review Nursing Documentation Reviewed: Yes - Infectious Disease Hx of Infectious Diseases: None - Tetanus Immunization Tetanus Immunization: Unknown - Cardiac Hx Cardiac Disorders: Yes Hx Hypertension: Yes - Pulmonary Hx Respiratory Disorders: Yes Hx Bronchitis: Yes Hx Chronic Obstructive Pulmonary Disease (COPD): Yes Hx Pneumonia: Yes - Neurological Hx Neurological Disorder: Yes Hx Dizziness: Yes - HEENT Hx HEENT Disorder: No - Renal Hx Renal Disorder: No - Endocrine/Metabolic Hx Endocrine Disorders: No - Hematological/Oncological Hx Blood Disorders: No - Integumentary Hx Dermatological Disorder: No - Musculoskeletal/Rheumatological Hx Musculoskeletal Disorders: No Hx Falls: No - Gastrointestinal Hx Gastrointestinal Disorders: No Hx Diverticulitis: Yes - Genitourinary/Gynecological Hx Genitourinary Disorders: No - Psychiatric Hx Psychophysiologic Disorder: Yes Hx Anxiety: Yes Hx Panic Disorder: Yes Hx Substance Use: No - Past Surgical History Past Surgical History: Non-Contributing - Surgical History Hx Cholecystectomy: Yes Hx Hysterectomy: Yes - Anesthesia Hx Anesthesia: No Hx Anesthesia Reactions: No Hx Malignant Hyperthermia: No - Suicidal Assessment Feels Threatened In Home Enviroment: No Family/Social History - Physician Review Nursing Documentation Reviewed: Yes Family/Social History: Unknown Family HX Smoking Status: Former Smoker Hx Alcohol Use: No Hx Substance Use: No Hx Substance Use Treatment: No Allergies/Home Meds Allergies/Adverse Reactions: Allergies No Known Allergies Allergy (Verified 05/29/12 18:35) Home Medications: Home Meds Medication Instructions Recorded Confirmed Alprazolam [Xanax] 0.25 mg PO PRN PRN 05/29/12 03/13/13 Escitalopram Oxalate [Lexapro] 10 mg PO DAILY 05/29/12 03/13/13 Albuterol Sulfate [Proair Hfa] 0.09 mg IH DAILY PRN 03/13/13 03/13/13 Fluticasone/Salmeterol 250/50 1 dsk IH DAILY PRN 03/13/13 03/13/13 [Advair Diskus 250/50] Zolpidem Tartrate [Ambien] 5 mg PO HS 03/13/13 03/13/13 Aspirin [Aspirin Chewable] 81 mg PO DAILY 03/14/13 03/14/13 Metoprolol Tartrate [Lopressor] 25 mg PO DAILY 03/14/13 03/14/13 Review of Systems - Physician Review All systems were reviewed & negative as marked: Yes - Review of Systems Constitutional: absent: Fevers Respiratory: Cough, Sputum. absent: SOB Cardiovascular: absent: Chest Pain Gastrointestinal: Nausea. absent: Abdominal Pain, Diarrhea, Vomiting Genitourinary Female: absent: Dysuria, Urine Output Changes Musculoskeletal: absent: Back Pain, Neck Pain Skin: absent: Rash Neurological: Dizziness. absent: Headache Endocrine: absent: Diaphoresis Physical Exam Vital Signs Reviewed: Yes Vital Signs Temp Pulse Resp BP Pulse Ox 04/18/18 07:56 98.2 F 92 H 18 166/98 H 95 04/18/18 07:39 98.2 F 92 H 18 166/98 H 94 L Temperature: Afebrile Blood Pressure: Hypertensive Pulse: Regular Respiratory Rate: Normal Appearance: Positive for: Well-Appearing, Non-Toxic, Comfortable Pain Distress: None Mental Status: Positive for: Alert and Oriented X 3 - Systems Exam Head: Present: Atraumatic, Normocephalic Pupils: Present: PERRL Extroacular Muscles: Present: EOMI Conjunctiva: Present: Normal Mouth: Present: Moist Mucous Membranes Respiratory/Chest: Present: Good Air Exchange, Other (Coarse breath sounds bilaterally). No: Respiratory Distress, Accessory Muscle Use Cardiovascular: Present: Regular Rate and Rhythm, Normal S1, S2. No: Murmurs Abdomen: No: Tenderness, Distention, Peritoneal Signs Upper Extremity: Present: Normal Inspection. No: Cyanosis, Edema Lower Extremity: Present: Normal Inspection. No: Edema Neurological: Present: GCS=15, CN II-XII Intact, Speech Normal Skin: Present: Warm, Dry, Normal Color. No: Rashes Psychiatric: Present: Alert, Oriented x 3, Normal Insight, Normal Concentration Medical Decision Making ED Course and Treatment: 04/18/18 08:18 Impression: 63 year old female presents to the ED for evaluation of productive cough since Wednesday. Differential Diagnosis included but are not limited to: -- Bronchitis -- Influenza -- Pneumonia -- Vertigo -- Anxiety Plan: -- Labs -- Chest X-ray -- Meclizine -- Duoneb -- IV Fluids -- Xanax -- Influenza AB -- Urinalysis -- Reassess and disposition Prior Visits: Notes and results from previous visits were reviewed. Progress Notes: 04/18/18 08:30 Patient is refusing medications despite discussion of medical necessity for clinical presentation. She is agreeable to steroids. 04/18/18 09:21 Labs reviewed with no leukocytosis or electrolyte abnormalities. - Lab Interpretations Lab Results: 04/18/18 08:30 04/18/18 08:30 Lab Results 04/18/18 08:30: PT 12.3, INR 1.09, APTT 34.9 04/18/18 08:30: Influenza Typ A,B (EIA) Negative for flu a/b 04/18/18 08:30: Sodium 142, Potassium 4.2, Chloride 105, Carbon Dioxide 28, Anion Gap 13, BUN 13, Creatinine 0.7, Est GFR ( Amer) > 60, Est GFR (Non- Af Amer) > 60, Random Glucose 101, Calcium 9.2, Magnesium 2.2, Total Bilirubin 0.4, AST 20, ALT 20, Alkaline Phosphatase 79, Troponin I < 0.01, Total Protein 8.0, Albumin 4.3, Globulin 3.7, Albumin/Globulin Ratio 1.2 04/18/18 08:30: WBC 6.5, RBC 4.68, Hgb 13.5, Hct 41.5, MCV 88.7, MCH 28.8, MCHC 32.5, RDW 12.9, Plt Count 210, MPV 10.1, Neut % (Auto) 57.0, Lymph % (Auto) 27.0, [place] % (Auto) 7.1 H, Eos % (Auto) 8.4 H, Baso % (Auto) 0.5, Lymph # (Auto) 1.8, [place] # (Auto) 0.5, Eos # (Auto) 0.6, Baso # (Auto) 0.03, Absolute Neuts (auto) 3.71 I have reviewed the lab results: Yes - RAD Interpretation Narrative RAD Interpretations (Text): 04/18/18 10:00 Chest X-ray reviewed by radiologist, shows: FINDINGS: LUNGS: No active pulmonary disease. PLEURA: No significant pleural effusion identified, no pneumothorax apparent. CARDIOVASCULAR: No aortic atherosclerotic calcification present. Aorta slightly ectatic and uncoiled. Normal cardiac size. No pulmonary vascular congestion. OSSEOUS STRUCTURES: No significant abnormalities. VISUALIZED UPPER ABDOMEN: Normal. OTHER FINDINGS: None. IMPRESSION: No active diseas Radiology Orders: 04/18/18 07:54 CHEST PORTABLE [RAD] Stat Integrated Log[employer] Support Manager: Radiologist - EKG Interpretation EKG Interpretation (Text): 04/18/18 08:21 EKG reviewed, shows NSR @ 84 bpm, No ST elevations, No T wave inversions, Normal intervals. Interpreted by ED Physician: Yes Type: 12 lead EKG - Medication Orders Current Medication Orders: Sodium Chloride (Sodium Chloride 0.9%) 1,000 mls @ 999 mls/hr IV .Q1H1M STA Stop: 04/18/18 08:58 Discontinued Medications Alprazolam (Xanax) 0.5 mg PO STAT STA; Protocol Stop: 04/18/18 07:55 Meclizine HCl (Antivert) 25 mg PO STAT STA Stop: 04/18/18 07:59 Metoclopramide HCl (Reglan) 10 mg IVP STAT STA Stop: 04/18/18 07:59 - Scribe Statement The provider has reviewed the documentation as recorded by the Alexxibe Nicholas Mcpherson. All medical record entries made by the Scribe were at my direction and personally dictated by me. I have reviewed the chart and agree that the record accurately reflects my personal performance of the history, physical exam, medical decision making, and the department course for this patient. I have also personally directed, reviewed, and agree with the discharge instructions and disposition. Disposition/Present on Arrival - Present on Arrival Any Indicators Present on Arrival: No History of DVT/PE: No History of Uncontrolled Diabetes: No Urinary Catheter: No History of Decub. Ulcer: No History Surgical Site Infection Following: None - Disposition Have Diagnosis and Disposition been Completed?: Yes Diagnosis: Bronchitis Disposition: HOME/ ROUTINE Disposition Time: 09:28 Patient Plan: Discharge Patient Problems: Current Active Problems Problem Status Onset Bronchitis Acute Condition: IMPROVED Discharge Instructions (ExitCare): Acute Bronchitis, Adult (DC) Print Language: POLISH Additional Instructions: All medical record entries made by the Scribe were at my direction and pe rsonally dictated by me. I have reviewed the chart and agree that the record accurately reflects my personal performance of the history, physical exam, medical decision making, and the department course for this patient. I have also personally directed, reviewed, and agree with the discharge instructions and disposition. Please take medications as prescribed Try to follow up with your PCP in 1 week Prescriptions: Azithromycin [Z-Juan] 250 mg PO DAILY #6 tab guaiFENesin [Robitussin] 200 mg PO Q6H #50 ml Methylprednisolone [Medrol Dose Pack (21 tabs)] 4 mg PO DAILY #21 mg Referrals: Charlie Cohen MD [Primary Care Provider] - Follow up with primary Forms: [facility] ([place]), WORK NOTE
[2018-04-18] MEDS: Albuterol-Ipratrop 3 mg / 0.5 (3 ml) UD IH SCH ×3 (08:17→08:45)
[2018-04-18 08:47] LABS: BASO # 0.03 K/mm3 (0.0-2.0); BASO % 0.5 % (0.0-3.0); EOS # 0.6 (0.0-0.7); EOS % 8.4 % (1.5-5.0); HEMOGLOBIN 13.5 g/dL (12.0-16.0); LYMPH # 1.8 (1.2-3.4); MEAN CELL VOLUME 88.7 fl (80.0-105.0); MEAN CORPUSCULAR HEMOGLOBIN 28.8 pg (25.0-35.0); MEAN CORPUSCULAR HGB CONC 32.5 g/dl (31.0-37.0); MEAN PLATELET VOLUME 10.1 fl (7.0-11.0); MONO # 0.5 (0.1-0.6); MONO % 7.1 % (1.0-6.0); RBC 4.68 10^6/uL (3.5-6.1); RED CELL DISTRIBUTION WIDTH 12.9 % (11.5-14.5); WHITE BLOOD COUNT 6.5 10^3/uL (4.5-11.0)
[2018-04-18 08:55] LABS: ALB/GLOB RATIO 1.2 (1.1-1.8)
[2018-04-18 09:00] LABS: INR 1.09; PARTIAL THROMBOPLASTIN TIME 34.9 Seconds (26.9-38.3); PROTHROMBIN TIME 12.3 SECONDS (9.4-12.5)
[2018-04-18 09:06] LABS: TROPONIN I < 0.01 ng/mL
[2018-04-18 09:19] LABS: ALBUMIN 4.3 g/dL (3.0-4.8); ALT/SGPT 20 U/L (7-56); AST/SGOT 20 U/L (14-36); BLOOD UREA NITROGEN 13 mg/dL (7-21); CALCIUM 9.2 mg/dL (8.4-10.5); GFR NON-AFRICAN AMERICAN > 60
[2018-04-18] MEDS ORDERED: guaiFENesin 200 mg/10 ml Syrup UD PO STA (09:20)
[2018-04-18 09:28] VITALS: TEMP 98.1
--- NOTE | 2018-04-18 09:45 | RAD ---
Date of service: 04/18/2018 HISTORY: Cough COMPARISON: Comparison made with chest radiograph dated 11/24/2016 and CTA of the chest dated 05/29/2012. FINDINGS: LUNGS: No active pulmonary disease. PLEURA: No significant pleural effusion identified, no pneumothorax apparent. CARDIOVASCULAR: No aortic atherosclerotic calcification present. Aorta slightly ectatic and uncoiled. Normal cardiac size. No pulmonary vascular congestion. OSSEOUS STRUCTURES: No significant abnormalities. VISUALIZED UPPER ABDOMEN: Normal. OTHER FINDINGS: None. IMPRESSION: No active disease.
[2018-04-18 09:48] VITALS: BP 129/79; PULSE 75; O2SAT 99
--- NOTE | 2018-04-18 12:43 | CARD ---
APPROVED REPORT Date of service: 04/18/2018 EKG Measurement Heart [id number] <Conclusion> Normal sinus rhythm Normal ECG
== END 2018-04-18 09:52 | disposition home or self-care (01) ==
LOC: ED 07:38
DX: J40 Bronchitis, not specified as acute or chronic (principal); I10 Essential (primary) hypertension; Z87.891 Personal history of nicotine dependence
CPT/HCPCS: 71045; 80053; 83735; 84484; 85025; 85610; 85730; 87804; 93005; 96360; 99284; J7030